=== PATIENT | female | born 1955 | race African-American/Black ===

== ENCOUNTER 2021-10-29 13:48 | Inpatient (IN) | payer MEDICAID, OTHER ==
[~2021-10-29] VITALS: Ht 167.6 cm; Wt 96.8 kg
[2021-10-29] MEDS ORDERED: SODIUM CHLORIDE 0.9% 1,000 ML IV ONE (15:15)
[2021-10-29 15:30] LABS: BASOPHILS % 0.4 % (0.0-2.0); EOSINOPHILS % 1.7 % (0.0-5.0); HEMATOCRIT. 41.7 % (36.0-48.0); HEMOGLOBIN. 13.1 g/dL (12.0-16.0); LYMPHOCYTES % 16.6 % (20.0-50.0); MEAN CORPUSCULAR HEMOGLOBIN 23.7 pg (28.0-32.0); MEAN CORPUSCULAR VOLUME 75.3 fL (81.0-99.0); MEAN PLATELET VOLUME 9.1 fl (7.4-10.4); MONOCYTES % 8.9 % (2.0-8.0); NEUTROPHILS % 72.4 % (40.0-76.0); PLATELET 211 x1000/uL (130-400); RED BLOOD CELL COUNT 5.54 mill/uL (4.2-5.4); RED CELL DISTRIBUTION WIDTH 16.8 % (11.6-14.6)
[2021-10-29 15:42] LABS: CHLORIDE 106 mEq/L (98-107)
[2021-10-29] MEDS ORDERED: ASPIRIN 325MG EC TABLET PO ONE (17:00)
[2021-10-29] MEDS ORDERED: CLONIDINE 0.1MG TABLET PO PRN (19:30)
[2021-10-29] MEDS ORDERED: ACETAMINOPHEN 325MG TABLET PO PRN ×2 (19:30)
[2021-10-29] MEDS ORDERED: MAGNESIUM/ALUMINUM HYDROXIDE/SIMETHICONE 30ML UDC PO PRN (19:30)
[2021-10-29] MEDS ORDERED: DOCUSATE SODIUM 100MG CAPSULE PO PRN (19:30)
[2021-10-29] MEDS ORDERED: ZOLPIDEM TARTRATE 5MG TABLET PO PRN (19:30)
[2021-10-29] MEDS ORDERED: IPRATROPIUM/ALBUTEROL 0.5-3(2.5)MG/3ML NEB NEB PRN (19:30)
[2021-10-29] MEDS ORDERED: TRAMADOL 50MG TABLET PO PRN (19:30)
[2021-10-29] MEDS ORDERED: ONDANSETRON HCL 4MG/2ML INJ IV PRN (19:30)
[2021-10-29] MEDS ORDERED: ENOXAPARIN 40MG/0.4ML SYR SUBCUT SCH (19:30)
[2021-10-29] MEDS ORDERED: NITROGLYCERIN 0.4MG TABLET SL SL PRN (19:30)
[2021-10-29] MEDS ORDERED: GUAIFENESIN 200MG/10ML SUGAR FREE UDC PO PRN (19:30)
[2021-10-29] MEDS ORDERED: KETOROLAC 15MG/ML VIAL IV PRN (19:30)
[2021-10-29] MEDS: METOPROLOL TARTRATE 25MG TABLET PO SCH (20:48)
[2021-10-29] MEDS: FAMOTIDINE 20MG TABLET PO SCH (20:49)
[2021-10-29] MEDS: ENOXAPARIN 30MG/0.3ML SYR SUBCUT SCH (20:49)
[2021-10-30 00:54] LABS: *BENZODIAZEPINES SCREEN URINE NEGATIVE (NEGATIVE); *COCAINE SCREEN URINE NEGATIVE (NEGATIVE); METHADONE URINE SCREEN NEGATIVE (NEGATIVE)
[2021-10-30 00:55] LABS: *AMPHETAMINES SCREEN URINE NEGATIVE (NEGATIVE); CANNABINOID URINE SCREEN NEGATIVE (NEGATIVE); OPIATES URINE SCREEN NEGATIVE (NEGATIVE); PHENCYCLIDINE URINE SCREEN NEGATIVE (NEGATIVE)
[2021-10-30 00:56] LABS: *BARBITURATES SCREEN URINE NEGATIVE (NEGATIVE)
[2021-10-30 05:23] LABS: BASOPHILS % 0.4 % (0.0-2.0); EOSINOPHILS % 1.3 % (0.0-5.0); HEMATOCRIT. 39.2 % (36.0-48.0); HEMOGLOBIN. 12.5 g/dL (12.0-16.0); LYMPHOCYTES % 20.7 % (20.0-50.0); MEAN CORPUSCULAR HEMOGLOBIN 24.2 pg (28.0-32.0); MEAN PLATELET VOLUME 10.2 fl (7.4-10.4); MONOCYTES % 9.4 % (2.0-8.0); NEUTROPHILS % 68.2 % (40.0-76.0); PLATELET 205 x1000/uL (130-400); RED BLOOD CELL COUNT 5.16 mill/uL (4.2-5.4); RED CELL DISTRIBUTION WIDTH 16.8 % (11.6-14.6)
[2021-10-30 05:31] LABS: CHLORIDE 107 mEq/L (98-107)
[2021-10-30 05:40] LABS: HDL CHOLESTEROL 52 mg/dL (40-59); PHOSPHORUS 3.3 mg/dL (2.5-4.9)
[2021-10-30 05:41] LABS: LDL CHOLESTEROL 98 mg/dL (5-100)
[2021-10-30 05:42] LABS: CREATINE KINASE 83 IU/L (26-192); CREATINE KINASE MB FRACTION < 1.0 ng/mL (0.5-3.6)
[2021-10-30] MEDS ORDERED: NALOXONE HCL 0.4MG/ML VIAL IV PRN (09:15)
[2021-10-30] MEDS: ENOXAPARIN 30MG/0.3ML SYR SUBCUT SCH ×3 (09:16→21:18)
[2021-10-30 09:17] VITALS: BP 171/82
[2021-10-30] MEDS: METOPROLOL TARTRATE 25MG TABLET PO SCH ×2 (09:17→21:18)
[2021-10-30] MEDS: FAMOTIDINE 20MG TABLET PO SCH ×2 (09:17→21:18)
[2021-10-30] MEDS: ASPIRIN 325MG EC TABLET PO SCH (09:17)
[2021-10-30] MEDS ORDERED: ROSU5TAB PO (10:02)
[2021-10-30] MEDS ORDERED: OMEP20CA14 MT (10:02)
[2021-10-30] MEDS ORDERED: EPIN0.3P3 IM (10:02)
[2021-10-30] MEDS ORDERED: NITR0.4T49 SL (10:02)
[2021-10-30] MEDS ORDERED: ASPI-1406 PO (10:02)
[2021-10-30] MEDS ORDERED: METO75TA PO (10:02)
[2021-10-30] MEDS ORDERED: GABA-529 MT (10:02)
[2021-10-30] MEDS ORDERED: MELO-106 MT (10:02)
[2021-10-30] MEDS ORDERED: LOSA100T3 MT (10:02)
[2021-10-30] MEDS ORDERED: HYDR25TA MT (10:02)
[2021-10-30 12:00] VITALS: BP 140/84
[2021-10-30] MEDS ORDERED: IOHEXOL-350 100 ML BOTTLE ONE (13:07)
[2021-10-30 16:00] VITALS: BP 152/72
[2021-10-30 17:21] LABS: CREATINE KINASE 82 IU/L (26-192)
[2021-10-30 17:23] LABS: CREATINE KINASE MB FRACTION < 1.0 ng/mL (0.5-3.6)
[2021-10-30 20:00] VITALS: BP 123/72
[2021-10-31] VITALS (17 sets, daily range): BP systolic 130–170; BP diastolic 65–81
[2021-10-31] MEDS: ASPIRIN 325MG EC TABLET PO SCH (09:00)
[2021-10-31] MEDS: FAMOTIDINE 20MG TABLET PO SCH ×2 (09:00→20:31)
[2021-10-31] MEDS: METOPROLOL TARTRATE 25MG TABLET PO SCH ×2 (09:00→20:31)
[2021-10-31] MEDS: ENOXAPARIN 30MG/0.3ML SYR SUBCUT SCH ×2 (09:00→20:31)
[2021-10-31] MEDS ORDERED: HEPARIN SODIUM 1,000 UNIT/1ML VIAL IV ONE (09:15)
[2021-10-31] MEDS ORDERED: MIDAZOLAM HCL 2 MG/2 ML VIAL ONE (10:19)
[2021-10-31] MEDS ORDERED: FENTANYL CITRATE/PF 50MCG/ML 2ML VIAL ONE (10:19)
[2021-10-31] MEDS ORDERED: IOHEXOL-300 100 ML BOTTLE ONE (10:19)
[2021-10-31] MEDS ORDERED: LIDOCAINE HCL 1% 30ML VIAL (10MG/ML) ONE (10:20)
[2021-10-31] MEDS ORDERED: IODIXANOL 320MG/ML 100 ML BOTTLE IV ONE (10:20)
[2021-10-31] MEDS ORDERED: VERAPAMIL HCL 2.5 MG/1 ML 2ML VIAL IV ONE (10:33)
[2021-10-31] MEDS ORDERED: DIPHENHYDRAMINE 50MG/ML VIAL ONE (11:11)
[2021-10-31] MEDS ORDERED: ATROPINE SULFATE 0.1MG/ML 10ML DISP.SYRIN ONE (11:40)
[2021-10-31] MEDS ORDERED: CLOPIDOGREL 75MG TABLET ONE (12:02)
[2021-10-31] MEDS ORDERED: ATROPINE SULFATE 1MG/10ML SYR IV PRN (12:15)
[2021-10-31] MEDS: AMLODIPINE 5MG TABLET PO SCH (12:54)
[2021-11-01] VITALS (11 sets, daily range): BP systolic 126–164; BP diastolic 69–98
[2021-11-01 07:54] LABS: BASOPHILS % 0.4 % (0.0-2.0); EOSINOPHILS % 1.5 % (0.0-5.0); HEMATOCRIT. 36.8 % (36.0-48.0); HEMOGLOBIN. 12.1 g/dL (12.0-16.0); LYMPHOCYTES % 21.1 % (20.0-50.0); MEAN CORPUSCULAR HEMOGLOBIN 24.7 pg (28.0-32.0); MEAN CORPUSCULAR VOLUME 74.9 fL (81.0-99.0); MEAN PLATELET VOLUME 9.2 fl (7.4-10.4); MONOCYTES % 9.5 % (2.0-8.0); NEUTROPHILS % 67.5 % (40.0-76.0); PLATELET 191 x1000/uL (130-400); RED BLOOD CELL COUNT 4.92 mill/uL (4.2-5.4); RED CELL DISTRIBUTION WIDTH 16.6 % (11.6-14.6)
[2021-11-01] MEDS: FAMOTIDINE 20MG TABLET PO SCH (07:55)
[2021-11-01] MEDS: AMLODIPINE 5MG TABLET PO SCH (07:55)
[2021-11-01] MEDS: METOPROLOL TARTRATE 25MG TABLET PO SCH (07:57)
[2021-11-01 08:08] LABS: CHLORIDE 108 mEq/L (98-107)
[2021-11-01] MEDS ORDERED: CLOPIDOGREL 75MG TABLET PO SCH (09:00)
[2021-11-01] MEDS ORDERED: ASPIRIN 81MG EC TABLET PO SCH (09:00)
== END 2021-11-01 15:10 | disposition home or self-care (01) | DRG 246 ==
LOC: ER 13:48 → MICUSO 17:13 → EDBEDREQ 17:23 → EDBEDREQTM 17:23 → 8WST 10-30 09:04 → 3WST 10-31 12:36
PROVIDERS: ADMIT Internal Medicine; ATTEND Internal Medicine
PROC: 027034Z Dilation of Coronary Artery, One Artery with Drug-eluting Intraluminal Device, Percutaneous Approach (ICD-10-PCS; principal; 2021-10-31)
PROC: B54BZZA Ultrasonography of Right Lower Extremity Veins, Guidance (ICD-10-PCS; 2021-10-31)
PROC: B211YZZ Fluoroscopy of Multiple Coronary Arteries using Other Contrast (ICD-10-PCS; 2021-10-31)
PROC: B41FYZZ Fluoroscopy of Right Lower Extremity Arteries using Other Contrast (ICD-10-PCS; 2021-10-31)
PROC: 4A023N7 Measurement of Cardiac Sampling and Pressure, Left Heart, Percutaneous Approach (ICD-10-PCS; 2021-10-31)
DX: I25.110 Atherosclerotic heart disease of native coronary artery with unstable angina pectoris (principal); I50.31 Acute diastolic (congestive) heart failure; I11.0 Hypertensive heart disease with heart failure; E66.9 Obesity, unspecified; E78.5 Hyperlipidemia, unspecified; Z20.822 Contact with and (suspected) exposure to COVID-19; I16.0 Hypertensive urgency; G56.02 Carpal tunnel syndrome, left upper limb; E78.00 Pure hypercholesterolemia, unspecified; Z95.1 Presence of aortocoronary bypass graft; Z68.33 Body mass index [BMI] 33.0-33.9, adult; Z98.61 Coronary angioplasty status; Z88.8 Allergy status to other drugs, medicaments and biological substances; Z79.899 Other long term (current) drug therapy; Z86.73 Personal history of transient ischemic attack (TIA), and cerebral infarction without residual deficits
CPT/HCPCS: 36415; 70460; 70551; 71045; 72141; 80048; 80053; 80061; 80305; 82550; 82553; 83036; 83735; 83880; 84100; 84484; 85025; 85347; 85379; 87426; 92928; 93005; 93306; 93458; 93970; 99285; C1760; C1769; C1874; C1887; C1893; C1894; J0461; J1200; J1644; J1650; J1885; J2250; J2405; J3010; J3490; J7030; Q9967